=== PATIENT | female | born 1965 | race Caucasian/White ===

== ENCOUNTER 2022-12-17 10:57 | Outpatient (CLI) | payer OTHER, SELFPAY | END 2022-12-17 10:58 | disposition home or self-care (01) | PROVIDERS: PCP Nurse Practitioner Family; Visit Provider Nurse Practitioner Family | DX: Z00.00 Encounter for general adult medical examination without abnormal findings (principal); I10 Essential (primary) hypertension; R53.83 Other fatigue; E78.5 Hyperlipidemia, unspecified; E66.9 Obesity, unspecified; M25.50 Pain in unspecified joint; R00.2 Palpitations | CPT/HCPCS: 80053; 80061; 83735; 84443; 85025; 85651; 86039; 86140; 86431 ==

== ENCOUNTER 2024-01-06 08:11 | Outpatient (CLI) | payer OTHER, SELFPAY ==
--- OUTSIDE RECORDS SUMMARY | 2024-01-06 08:15 | XMS_ITS | Encounter Summary ---
Author Organization [facility] er Address [address] [place] [address] Care Team Providers Care Needle Valve Operator Name Role Phone None, Pcp Primary Care Provider Unavailabl e Reason for Visit * Reason Comments Med Refill Encounter Details Date Type Department Care Team (Late st Contact Info) Description 10/19/2018 Refill Hiram Varg[place]se [address] [place] [address] Natalie Long, ERP PROGRAMMER, CHUCKING MACHINE SET UP OPERATOR [address] [place] [address] Secondary hypertension Social History Tobacco Use Types Packs/Day Years Used Date Smoking Tobacco: Never Smokeless Tobacco: Never Alcohol Use Standard Drinks/Week Comments Yes 3 (1 standard drink = 0.6 oz pur e alcohol) Sex and Gender Information Value Date Recorded Sex Assigned at Not on file Gender Identity Not on file Sexual Orientation Not on file documented as of this encounter Miscellaneous Notes * Telephone Encounter - Melba Pena LPN - 10/21/2018 9:12 AM CDT Spoke with pharmacy patient is not needing a refill of HCTZ at this time documented in this encounter Plan of Treatment Not on file documented as of this encounter Visit Diagnoses Diagnosis Secondary hypertension Other secondary hypertension, unspecified documented in this encounter Care Teams Needle Valve Operator Relationship Specialty Start Date End Date None, Pcp [address] [place] [address] PCP - General 03/06/23 documented as of this encounter
--- OUTSIDE RECORDS SUMMARY | 2024-01-06 08:15 | XMS_ITS | Encounter Summary ---
Author Organization [facility] er Address [address] [place] [address] Care Team Providers Care Welding Machine Operator Ultrasonic Name Role Phone None, Pcp Primary Care Provider Unavailabl e Reason for Visit * Reason Comments Med Refill Encounter Details Date Type Department Care Team (Late st Contact Info) Description 09/12/2018 Refill Hiram Varghese [address] [place] [address] Natalie Long APRN, PRIVATE INVESTIGATOR [address] [place] [phone] Muscle spasms of lower extremity, unspecified laterality (Primary Dx); Secondary hypertension; Essential hypertension Social History Tobacco Use Types Packs/Day [...] encounter Miscellaneous Notes * Telephone Encounter - Lorraine Lopez MA - 09/15/2018 9:46 AM CDT Patient informed. Will call back to schedule med review appt. * Telephone Encounter - Natalie Long APRN, PRIVATE INVESTIGATOR - 09/15/2018 9:40 AM CDT Please let the patient know that I fill the prescription for 3 months that she is due for medication review before future refills. Thanks Alen * Telephone Encounter - Keya Juarez MA - 09/15/2018 8:00 AM CDT Cyclobenzaprine 10mg last rx 06/20/17 #30 no refill Atenolol 25mg last rx 06/20/17 #90, 3 refills Last date med(s) reviewed: 06/20/17 CP No Appt scheduled 06/09/18 BP 104/70 No labs in chart No pending labs in chart Pt due to be seen. Please work with the pt to help set up appt. Please advise on extension until appt. documented in this encounter Plan of Treatment Not on file documented as of this encounter Visit Diagnoses Diagnosis Muscle spasms of lower extremity, unspecified laterality- Primary Secondary hypertension Other secondary hypertension, unspecified Essential hypertension Unspecified essential hypertension documented in this encounter Care Teams Welding Machine Operator Ultrasonic Relationship Specialty Start Date End Date None, Pcp [address] [place] [address] PCP - General 03/06/23 documented as of this encounter
--- OUTSIDE RECORDS SUMMARY | 2024-01-06 08:15 | XMS_ITS | Clinical Summary ---
Author Organization [email or web address] Address [place], [place] [address] Care Team Providers Care Insurance Marketing Specialist Name Role Phone Pcp, No Primary Care Provider Unavailabl e Allergies Active Allergy Reactions Criticality Noted Date Comments Phenobarbital Hives 07/28/2020 Medications Medication Sig Dispensed Refills Start Date End Date Status aspirin (ECOTRIN) 81 mg enteric coated tablet Take 1 Tablet by mouth once daily with a meal. 0 07/28/2020 Active Lactobacillus acidophilus (lactobacill.acidophil us, bulk,) 1 billion unit/gram powd Mix 1 Tablet in liquid then take by mouth. Active Multivitamins with Fluoride (MULTI-VITAMIN ORAL) Take 1 Tablet by mouth. Active celecoxib (CELEBREX) 200 mg capsuleIndications:Pos t-traumatic osteoarthritis of left knee Take 1 Capsule (200 mg) by mouth once daily with a meal. 180 Capsule 1 07/30/2022 Active atenoloL (TENORMIN) 25 mg tabletIndications:HTN (hypertension) TAKE ONE TABLET BY MOUTH EVERY DAY 30 Tablet 11/07/2022 Active hydroCHLOROthiazide 12.5 mg capsuleIndications:HTN (hypertension) TAKE ONE CAPSULE BY MOUTH EVERY DAY 30 Capsule 11/07/2022 Active Active Problems Problem Noted Date Diagnosed Date Colon polyp 08/30/2022 Overview: Colonoscopy 08/2022 TA, repeat in 5 years HTN (hypertension) 07/28/2020 Hyperlipidemia 07/28/2020 Osteoporosis screening 07/28/2020 Overview: Normal bone density May 2019. Heart murmur 07/28/2020 Overview: States had echocardiogram previously that showed she had a small hole in her heart (looks like patent foramen ovale from previous records)? Was told she did not need to have regular follow up for this. Takes aspirin. Encounters Date Type Department Care Team Description 11/05/2023 Orders Only [facility] Staff, Other Clinical 1 scan: (1-Ord) [facility] 11/05/[address] [facility] [address] [place] [address] Fer Chaves MD Consult 11/05/[address] [facility] [address] [place] [address] Fer Chaves MD Consult; Dementia; Error-please disregard from Last 3 Months Immunizations Name Administration Dates Next Due COVID-19 vaccine (Moderna 100mcg/0.5mL) PF, MDV 07/26/2020,06/28/2020 Influenza Virus, Unspecified 04/02/2016, 02/23/2014,03/02/2013,2010,03/17/2008 Influenza, IIV4 04/02/2016, 5,02/16/2015,2010,03/17/2008 Influenza, IIV4 (=>6mos) MDV 03/01/2019 Influenza,CCIIV4 PRESERV FREE 04/10/2020 Tdap 10/23/2021,04/02/2012,05/19/1997 Tetanus Toxoid 05/19/1997 Family History Medical History Relation Name Comments Cancer Father liver Hyperlipidemia Father Hypertension Father Atrial fibrillation Mother Hyperlipidemia Mother Hypertension Mother Melanoma Mother Hypertension Sister Melanoma Sister Thyroid cancer Sister Cancer-breast No Family History Relation Name Status Comments Father Mother Alive Sister Social History Tobacco Use Types Packs/Day Years Used Date Smoking Tobacco: Former Cigarettes Smokeless Tobacco: Never Tobacco Cessation:Counseling Given: Yes Comments:quit 20 years ago Alcohol Use Standard Drinks/Week Comments Yes 0 (1 standard drink = 0.6 oz pur e alcohol) occasional PHQ-2 Answer Date Recorded PHQ-2 TOTAL SCORE 0 10/23/2021 Social Connections Answer Date Recorded Frequency of Communication with Friends and Fami ly Not on file 05/16/2021 Financial Resource Strain Answer Date R ecorded Difficulty of Paying Living Expenses Not on file 05/16/2021 Difficulty of Paying Living Expenses Not on file 05/16/2021 Sex and Gender Information Value Date Recorded Sex Assigned at Female 04/21/2021 9:39 PM ENVIRONMENTAL MANAGEMENT SPECIALIST Gender Identity Female 04/21/2021 9:39 PM ENVIRONMENTAL MANAGEMENT SPECIALIST Sexual Orientation Straight 04/21/2021 9: 39 PM ENVIRONMENTAL MANAGEMENT SPECIALIST Obstetrics History Last Filed Vital Signs Vital Sign Reading Time Taken Comments Blood Pressure 111/67 08/28/2022 8:40 AM CDT Pulse 50 08/28/2022 8:40 AM CDT Temperature 36.7 ??C (98.1 ??F) 04/25/2021 7:37 AM CS T Respiratory Rate 14 08/28/2022 8:40 AM CDT Oxygen Saturation 96% 08/28/2022 8:40 AM CDT Inhaled Oxygen Concentration - - Weight 88 kg (194 lb) 11/08/2021 10:24 AM CDT Height 163.8 cm (5' 4.49) 10/23/2021 7:28 AM CD T Body Mass Index 32.8 10/23/2021 7:28 AM CDT Plan of Treatment Upcoming Encounters Date Type Department Care Team (Late st Contact Info) Description 01/29/2024 8:40 AM CDT Office Visit [facility] [address] [place] [address] Fer Chaves MD [address] [place] [address] Health Maintenance Due Date Last Done Comments HIV for age 15-65 01/12/1980 Zoster (shingles) series for age 50+ (1 of 2) 2015 BMI (ht and wt on same day) for age 18+ 10/23/2022 10/23/2021, 07/28/2020 Depression screening for age 12+ 10/23/2022 10/23/2021, 07/28/2020 COVID-19 vaccine series ( season) 2023 05/04/2021, 07/26/2020, 06/28/2020 Mammogram for age 45-75 05/31/2023 05/31/2022, 04/25 Influenza for age 50-64 01/18/2024 04/10/20 20, 03/01/2019, 04/02/2016, Additional history exists Lipids for age 45-75 10/23/2026 10/23/2021, 07/29/19 21 Colonoscopy through age 75 08/29/202708/28, 08/28/2022, 08/28/2022, Additional history exists Tetanus booster 10/24/2031 10/23/2021, 03/19, 05/19/1997 Hepatitis C screening for age 18-79 Completed 10/23/2021 Tdap Completed 10/23/2021, 03/19, 05/19/1997 Pneumococcal series for age 6-64 Aged Out No longer eligible based on patient's age to complete this topic Procedures Procedure Name Priority Date/Time Associated Diagnosis Comments SCAN CORRESP-IMAGING 11/05/2023 3:38 PM CDT COLONOSCOPY SCREENING Routine 08/28/2022 7:18 AM CDT History of colon polyps XR MAMMO BILAT SCREENING Routine 05/31/2022 8:32 AM ENVIRONMENTAL MANAGEMENT SPECIALIST Visit for screening mammogram ANTI HCV Routine 10/23/2021 8:31 AM CDT Need for hepatitis C screening test LIPID PANEL W REFLEX MEASURED LDL Routine 10/23/2021 8:31 AM CDT Hyperlipidemia, unspecified hyperlipidemia type from Last 3 Months or Most Recently Relevant to Health Maintenance Results * SCAN CORRESP-IMAGING (11/05/2023 3:38 PM CDT) Anatomical Region Laterality Modality Other Narrative 11/05/2023 3:38 PM CDT Ordered by an unspecified provider. Other Clinical Staff OTHER * COLONOSCOPY (08/28/2022 7:37 AM CDT) 08/28/2022 7:37 AM CDT Narrative Transcriptions Girma Bauer MD - 08/28/2022 8:34 AM CDT Patient Name: Beatrice Nguyen Procedure Date: 08/28/2022 Gender: Female Date of : 1965 Admit Type: Outpatient Procedure: Colonoscopy Proceduralist: Girma Bauer MD , Lindsey Jacobson RN (Nurse), Aleksandra Freitas (Nurse) Referring MD: Zoraida Lou Indications/Pre-Op Diagnosis: High risk colon cancer surveillance:Personal history of colonic polyps, Last colonoscopy: date unknown (unable to locate lastcolonoscopy report) Medications: Fentanyl 100 micrograms IV, Midazolam 3 mgIV Procedure Description: The patient had risks, benefits and alternatives explained to andgave informed consent. The patient had a stable cardiopulmonary status and judged an adequate candidate for conscious sedation. The endoscope [id number]-[id number] [id number] was passed through the anus andadvanced to the cecum, identified by appendiceal orifice and ileocecal valve.The colonoscopy was performed without difficulty. The patient toleratedthe procedure well. The quality of the bowel preparation was good. Anatomical landmarks were photographed. Complications: No immediate complications. Estimated Blood Loss & Specimen: Estimated blood loss: none. Specimen collected - Yes and sent to Laboratory Findings: Two sessile polyps were found in the ascending colon. The polyps were2 to 3 mm in size. These polyps were removed with a cold biopsyforceps. Resection and retrieval were complete. The exam was otherwise without abnormality on direct and retroflexion views. Impressions/Post-Op Diagnosis: - Two 2 to 3 mm polyps in the ascending colon, removed with a cold biopsy forceps. Resected and retrieved. - The examination was otherwise normal on direct and retroflexionviews. Recommendation: - Patient has a contact number available for emergencies. The signsand symptoms of potential delayed complications were discussed with the patient. Return to normal activities tomorrow. Written discharge instructions were provided to the patient. - Resume previous diet. - Continue present medications. - Await pathology results. - Repeat colonoscopy is recommended for surveillance. The colonoscopy date will be determined after pathology results from today's exambecome available for review. Moderate Sedation: A time out was performed before the procedure. Moderate (conscious) sedation was administered by the endoscopy nurse and supervised bythe endoscopist. The following parameters were monitored: oxygensaturation, heart rate, blood pressure, EKG, CO2, respiratory rate, adequacy of pulmonary ventilation and reponse to care. Please refer to the patient's medical record flowsheets and nursing notes for moderate sedation details. Total physician intraservice time was 17 minutes. Girma Bauer MD 08/28/2022 8:34:11 AM This report has been signed electronically. Note Initiated On: 08/28/2022 7:37 AM Procedure Code(s): --- Professional --- 18121, Colonoscopy, flexible; with biopsy, single or multiple Diagnosis Code(s): --- Professional --- Z86.010, Personal history of colonicpolyps D12.2, Benign neoplasm of ascending colon CPT copyright 2021 [employer]. All rights reserved. The codes documented in this report are preliminary and upon medical biller coder reviewmay be revised to meet current compliance requirements. Scope In: 8:09:15 AM Scope Withdrawal Time 0 hours 9 minutes 40 seconds Scope Out: 8:23:15 AM Girma Bauer MD PROCEDURE ORD * XR MAMMO BILAT SCREENING (05/31/2022 8:32 AM ENVIRONMENTAL MANAGEMENT SPECIALIST) Anatomical Region Laterality Modality BREASTS, Breast Left, Breast Right Bilateral Mammography Impressions 06/03/2022 3:52 PM ENVIRONMENTAL MANAGEMENT SPECIALIST ??There is no radiographic evidence for malignancy. ??Recommend annual mammograms. MAMMOGRAM ASSESSMENT: ??ACR 1 Negative PATIENTS: You will also receive a letter with your examination results in an easy to read format. ??If you have questions about your results, please contact your referring provider. Narrative 06/03/2022 3:52 PM ENVIRONMENTAL MANAGEMENT SPECIALIST For Patients: As a result of the 21st Century Cures Act, medical imaging exams and procedure reports are released immediately into your electronic medical record. You may view this report before your referring provider. If you have questions, please contact your health care provider. XR MAMMO BILAT SCREENING [[id number]] CLINICAL HISTORY: ??This is an asymptomatic 57 y.o. patient. INDICATION FOR EXAM: Mammogram Screening. TECHNIQUE: CC & MLO views were obtained. ??This study was evaluated with the assistance of Computer-Aided Detection. COMPARISON FILM: Yes 04/25/21 [facility] 06/17/19 [facility] FINDINGS: ??The breasts are almost entirely fatty. There are no dominant masses, suspicious micro calcifications or areas of architectural distortion. Zoraida Lou PA MAMMO * (ABNORMAL) LIPID PANEL W REFLEX MEASURED LDL (10/23/2021 8:31 AM CDT) CHOLESTEROL,TOTAL 259(H) 100 - 199 mg/dL 10/23/2021 5:13 PM CDT [facility] TRIGLYCERIDES 139 <150 mg/dL 10/23/2021 5:13 PM CDT [facility] HDL CHOLESTEROL 68 >40 mg/dL 5:13 PM CDT [facility] NON-HDL CHOLESTEROL 191(H) <145 mg/dl 10/23/2021 5:13 PM CDT [facility] CHOL/HDL RATIO 3.81 <4.50 10/23/2021 5:13 PM CDT [facility] LDL CHOLESTEROL 163(H) <=130 mg/dL 10/23/2021 5:13 PM CDT [facility] VLDL CHOLESTEROL 28 <=30 mg/dL 10/23/2021 5:13 PM CDT [facility] PROVIDER ORDERED STATUS RANDOM 10/23/2021 5:13 PM CDT [facility] Blood BLOOD SPECIMEN / Unknown Venipuncture / Unknown 10/23/2021 8:31 AM CDT 10/23/2021 8:31 AM CDT Zoraida GALARZA CHEMISTRY [facility] [address] [place] [address], [place] * ANTI HCV (10/23/2021 8:31 AM CDT) HEPATITIS C ANTIBODY Non-React get Non-React get 10/23/2021 5:36 PM CDT [facility] Comment:Antibodies to HCV no t detected; does not exclude the possibility of exposure to HCV. Blood BLOOD SPECIMEN / Unknown Venipuncture / Unknown 10/23/2021 8:31 AM CDT 10/23/2021 8:31 AM CDT Zoraida GALARZA SEND OUTS [facility] [address] [place] [address], [place] from Last 3 Months or Most Recently Relevant to Health Maintenance Care Teams Insurance Marketing Specialist Relationship Specialty Start Date End Date Pcp, No . PCP - General 04/09/23
--- OUTSIDE RECORDS SUMMARY | 2024-01-06 08:15 | XMS_ITS | Encounter Summary ---
Author Organization [facility] er Address [address] [place] [address] Care Team Providers Care Machinery Mover Name Role Phone None, Pcp Primary Care Provider Unavailabl e Encounter Details Date Type Department Care Team (Late st Contact Info) Description 10/21/2023 2:00 PM CDT Lab Rj Varghese [address] [place] [address] Social History Tobacco Use Types Packs/Day Years Used Date Smoking Tobacco: Former Smokeless Tobacco: Never Comments:10 years ago (06/20) Alcohol Use Standard Drinks/Week Comments Yes 3 (1 standard drink = 0.6 oz pur e alcohol) rare PHQ-2 Answer Date Recorded PHQ-9 Total Score 0 07/01/2023 Education Answer Date Recorded What is the highest level of school you have completed or the highest degree you have received? Associate degree: academic program 11/17/2018 Sex and Gender Information Value Date Recorded Sex Assigned at Not on file Gender Identity Not on file Sexual Orientation Not on file documented as of this encounter Plan of Treatment Not on file documented as of this encounter Visit Diagnoses Not on filedocumented in this encounter Care Teams Machinery Mover Relationship Specialty Start Date End Date None, Pcp [address] [place] [address] PCP - General 03/06/23 documented as of this encounter
--- OUTSIDE RECORDS SUMMARY | 2024-01-06 08:15 | XMS_ITS | Clinical Summary ---
Author Organization [facility] er Address [address] [place] [address] Care Team Providers Care Windshield Technician Name Role Phone None, Pcp Primary Care Provider Unavailabl e Allergies Active Allergy Reactions Criticality Noted Date Comments Phenobarbital Medications Medication Sig Dispensed Refills Start Date End Date Status aspirin 81 MG chewable tablet Chew 1 tablet (81 mg total) 1 (one) time each day Active Multiple Vitamins-Minerals (MULTIVITAMIN ADULT PO) Take 1 tablet by mouth 1 (one) time each day Active LACTOBACILLUS PO Take 1 tablet by mouth 1 (one) time each day Active atorvastatin (LIPITOR) 10 MG tabletIndications:Hype rlipidemia, unspecified hyperlipidemia type Take 1 tablet (10 mg total) by mouth 1 (one) time each day 90 tablet 3 12/28/2018 Active hydroCHLOROthiazide (MICROZIDE) 12.5 MG capsuleIndications:Ess ential hypertension Take 1 capsule (12.5 mg total) by mouth 1 (one) time each day 90 capsule 3 12/09/2019 Active atenolol (TENORMIN) 25 MG tablet Take 1 tablet (25 mg total) by mouth daily 11/07/2022 Active cetirizine (ZyrTEC ALLERGY) 10 MG tabletIndications:Bila teral acute serous otitis media, recurrence not specified Take 1 tablet (10 mg total) by mouth every night 30 tablet 07/01/2023 Active pseudoephedrine (Sudafed 12 Hour) 120 MG 12 hr tabletIndications:Bila teral acute serous otitis media, recurrence not specified Take 1 tablet (120 mg total) by mouth every 12 (twelve) hours for 10 days Do not crush, chew, or split. 20 tablet 07/01/2023 Active Active Problems Problem Noted Date Diagnosed Date Bilateral acute serous otitis media 07/01/2023 Last Assessment & Plan: Start Sudafed 120 mg/12 hour tablet every morning for up to 10 days Start Zyrtec 10 mg every night for 30 nights Cardiac murmur 06/20/2017 Stress incontinence 06/20/2017 Hypertension 11/02/2010 Overview: Overview: HTN [Hypertension] date unknown Encounters Date Type Department Care Team Description 10/21/2023 2:00 PM CDT Lab [place] [address] [facility] [address] [place] [address] from Last 3 Months Immunizations Name Administration Dates Next Due Flu Vaccine 50-64yrs Flublok (Egg Free) 04/10/2020 INFLUENZA QUADRIVALENT MDV (IM) 04/10/20,03/01/2019,03/01/2019,2013,03/02/2013 Influenza 6mo-64yrs Quad Pre servative Free IM 01/22/2023,04/02/2016,03/07/2015,2014,03/07/2011,03/17/2008 Influenza, Unspecified 04/02/2016,2013,03/02/2013,2010,03/17/2008 Influenza, injectable, MDCK, preservative free, quadrivalent, 0.5mL dose (Flucelvax) 04/10/2020 Tdap 10/23/2021,04/02/2012,05/19/1997 Tetanus 05/19/1997 Family History Medical History Relation Comments Hyperlipidemia Father Hypertension Father Liver cancer Father Thyroid cancer Father partial thyroide ctomy Atrial fibrillation Mother Hyperlipidemia Mother Hypertension Mother Melanoma Mother Skin cancer Mother melanoma Heart disease Other Hypothyroidism Other Melanoma Sister Thyroid cancer Sister Relation Status Comments Father Mother Alive Other Sister Alive Son 1 Alive Son 2 Alive Son 3 Alive Social History Tobacco Use Types Packs/Day Years Used Date Smoking Tobacco: Former Smokeless Tobacco: Never Tobacco Cessation:Counseling Given: Not Answered Comments:10 years ago (06/20/2017) Alcohol Use Standard Drinks/Week Comments Yes 3 [...] on file Sexual Orientation Not on file Last Filed Vital Signs Vital Sign Reading Time Taken Comments Blood Pressure 123/81 07/01/2023 2:54 PM MANAGER OF PRODUCTION Pulse 63 07/01/2023 2:54 PM MANAGER OF PRODUCTION Temperature 36.4 ??C (97.6 ??F) 07/01/2023 2:54 PM CS T Respiratory Rate 12 07/01/2023 2:54 PM MANAGER OF PRODUCTION Oxygen Saturation 96% 07/01/2023 2:54 PM MANAGER OF PRODUCTION Inhaled Oxygen Concentration - - Weight 82.2 kg (181 lb 3.2 oz) 07/01/2023 2:54 P M MANAGER OF PRODUCTION Height 165.1 cm (5' 5) 11/01/2019 1:06 PM CDT Body Mass Index 30.15 11/01/2019 1:06 PM CDT Plan of Treatment Health Maintenance Due Date Last Done Comments CT Colonography 1965 FIT-DNA 1965 Pap Smear 1965 Sigmoidoscopy 1965 iFOBT 1965 Zoster Vaccines (1 of 2) 2015 COVID-19 Vaccine ( season) 2023 05/04/2021, 07/26/2020, 06/28/2020 Mammogram 05/31/2023 05/31/2022, 05/21, 03/23/2018 Influenza Vaccine (#1) 2024 , 04/10/2020, 04/10/2020, Additional history exists DTaP,Tdap,and Td Vaccines (4 - Td or Tdap) 10/24/2031 10/23/2021, 04/02/2012, 05/19/1997 Colonoscopy 08/28/2032 08/28/2022 Colorectal Cancer Screening 08/28/2032 HPV Vaccines Aged Out No longer eligi ble based on patient's age to complete this topic Pneumococcal Vaccine: Pediatrics (0 to 5 Years) and At-Risk Patients (6 to 64 Years) Aged Out No longer eligible based on patient's age to complete this topic Care Teams Windshield Technician Relationship Specialty Start Date End Date None, Pcp [address] [facility] [place] [address] PCP - General 03/06/23
== END 2024-01-06 08:12 | disposition home or self-care (01) ==
PROVIDERS: PCP Nurse Practitioner Family; Visit Provider Nurse Practitioner Family
DX: Z00.00 Encounter for general adult medical examination without abnormal findings (principal); E78.5 Hyperlipidemia, unspecified; I10 Essential (primary) hypertension; E66.9 Obesity, unspecified; Z13.0 Encounter for screening for diseases of the blood and blood-forming organs and certain disorders involving the immune mechanism; Z83.49 Family history of other endocrine, nutritional and metabolic diseases; Z51.81 Encounter for therapeutic drug level monitoring
CPT/HCPCS: 80053; 80061; 84443; 85025

== ENCOUNTER 2024-01-15 13:19 | Outpatient (CLI) | payer OTHER, SELFPAY ==
--- OUTSIDE RECORDS SUMMARY | 2024-01-15 13:22 | XMS_ITS | Encounter Summary ---
Author Organization [facility] er Address [address] [place] [address] Care Team Providers Care Bakery Demonstrator Name Role Phone None, Pcp Primary Care Provider Unavailabl e Reason for Visit * Reason Comments Med Refill Encounter Details Date Type Department Care Team (Late st Contact Info) Description 09/12/2018 Refill Hiram Varghese [address] [place] [address] Natalie Long APRN, PLAYER DEVELOPMENT EXECUTIVE [address] [place] [id number] Muscle spasms of lower extremity, unspecified laterality [...] * Telephone Encounter - Natalie Long APRN, PLAYER DEVELOPMENT EXECUTIVE - 09/15/2018 9:40 AM CDT Please let [...] hypertension documented in this encounter Care Teams Bakery Demonstrator Relationship Specialty Start Date End Date None, Pcp [address] [place] [phone] PCP - General 03/06/23 documented as of this encounter
--- OUTSIDE RECORDS SUMMARY | 2024-01-15 13:22 | XMS_ITS | Encounter Summary ---
Author Organization [facility] er Address [address] [place] [address] Care Team Providers Care Supervisor Printing And Stamping Name Role Phone None, Pcp Primary Care Provider Unavailabl e Encounter Details Date Type Department Care Team (Late st Contact Info) Description 10/21/2023 2:00 PM CDT Lab [place] [address] [place] [address] Social History Tobacco Use Types Packs/Day Years [...] on filedocumented in this encounter Care Teams Supervisor Printing And Stamping Relationship Specialty Start Date End Date None, Pcp [address] [place] [address] PCP - General 03/06/23 documented as of this encounter
--- OUTSIDE RECORDS SUMMARY | 2024-01-15 13:22 | XMS_ITS | Encounter Summary ---
Author Organization [facility] er Address [address] [place] [address] Care Team Providers Care Supervisor Engine Assembly Name Role Phone None, Pcp Primary Care Provider Unavailabl e Reason for Visit * Reason Comments Med Refill Encounter Details Date Type Department Care Team (Late st Contact Info) Description 10/19/2018 Refill [place] [address] [place] [address] Natalie Long, HEEL PACKER, RESIDENTIAL PROPERTY TAX APPRAISER [address] [place] [address] Secondary hypertension Social History Tobacco Use Types [...] unspecified documented in this encounter Care Teams Supervisor Engine Assembly Relationship Specialty Start Date End Date None, Pcp [address] [place] [address] PCP - General 03/06/23 documented as of this encounter
--- OUTSIDE RECORDS SUMMARY | 2024-01-15 13:22 | XMS_ITS | Clinical Summary ---
Author Organization [facility] Address [place], [place] [address] Care Team Providers Care Conveyor Belt Repairer Name Role Phone Pcp, No Primary Care [...] Department Care Team Description 11/05/2023 Orders Only [facility] Staff, Other Clinical 1 scan: (1-Ord) [facility] 11/05/2023 Telephone [facility] [place] [address] [place] [address] Fer Chaves MD Consult 11/05/2023 Telephone [facility] [place] [address] [place] [address] Fer Chaves MD Consult; Dementia; Error-please disregard [...] Sex Assigned at Female 04/21/2021 9:39 PM GRIZZLYMAN Gender Identity Female 04/21/2021 9:39 PM GRIZZLYMAN Sexual Orientation Straight 04/21/2021 9: 39 PM GRIZZLYMAN Obstetrics History Last Filed Vital Signs Vital [...] Care Team (Late st Contact Info) Description 01/15/2024 2:00 PM CDT Ancillary Procedure [facility] [address] [place] [address] 01/29/2024 8:40 AM CDT Office Visit [facility] [place] [address] [place] [address] Fer Chaves MD [address] [place] [address] Health Maintenance Due Date Last Done Comments [...] MAMMO BILAT SCREENING Routine 05/31/2022 8:32 AM GRIZZLYMAN Visit for screening mammogram ANTI HCV Routine [...] Colonoscopy Proceduralist: Girma Bauer MD , Lindsey Jacobson, RN (Nurse), Aleksandra Freitas (Nurse) Referring MD: [...] candidate for conscious sedation. The endoscope [id number] was passed through the anus andadvanced to [...] 7:37 AM Procedure Code(s): --- Professional --- 31910, Colonoscopy, flexible; with biopsy, single or multiple Diagnosis Code(s): --- Professional --- Z86.010, Personal history of colonicpolyps D12.2, Benign neoplasm of ascending colon CPT copyright 2021 [employer]. All rights reserved. The codes documented in this report are preliminary and upon medical biller coder reviewmay be revised to meet current compliance requirements. Scope In: 8:09:15 AM Scope Withdrawal Time 0 hours 9 minutes 40 seconds Scope Out: 8:23:15 AM Girma Bauer MD PROCEDURE ORD * XR MAMMO BILAT SCREENING (05/31/2022 8:32 AM GRIZZLYMAN) Anatomical Region Laterality Modality BREASTS, Breast Left, Breast Right Bilateral Mammography Impressions 06/03/2022 3:52 PM GRIZZLYMAN ??There is no radiographic evidence for malignancy. ??Recommend annual mammograms. MAMMOGRAM ASSESSMENT: ??ACR 1 Negative PATIENTS: You will also receive a letter with your examination results in an easy to read format. ??If you have questions about your results, please contact your referring provider. Narrative 06/03/2022 3:52 PM GRIZZLYMAN For Patients: As a result of the Cures Act, medical imaging exams and procedure reports are released immediately into your electronic medical record. You may view this report before your referring provider. If you have questions, please contact your health care provider. XR MAMMO BILAT SCREENING [[id number]] CLINICAL HISTORY: ??This is an asymptomatic 57 y.o. patient. INDICATION FOR EXAM: Mammogram Screening. TECHNIQUE: CC & MLO views were obtained. ??This study was evaluated with the assistance of Computer-Aided Detection. COMPARISON FILM: Yes 04/25/21 [facility] 06/17/19 [facility] FINDINGS: ??The breasts are almost entirely fatty. There are no dominant masses, suspicious micro calcifications or areas of architectural distortion. Zoraida GALARZA MAMMO * (ABNORMAL) LIPID PANEL W REFLEX MEASURED LDL (10/23/2021 8:31 AM CDT) CHOLESTEROL,TOTAL 259(H) 100 - 199 mg/dL 10/23/2021 5:13 PM CDT [facility] TRIGLYCERIDES 139 <150 mg/dL 10/23/2021 5:13 PM CDT [facility] HDL CHOLESTEROL 68 >40 mg/dL 5:13 PM CDT [facility] NON-HDL CHOLESTEROL 191(H) <145 mg/dl 10/23/2021 5:13 PM CDT [facility] CHOL/HDL RATIO 3.81 <4.50 10/23/2021 5:13 PM CDT [facility] LDL CHOLESTEROL 163(H) <=130 mg/dL 10/23/2021 5:13 PM CDT [facility] VLDL CHOLESTEROL 28 <=30 mg/dL 10/23/2021 5:13 PM CDT [facility] PROVIDER ORDERED STATUS RANDOM 10/23/2021 5:13 PM CDT [facility] Blood BLOOD SPECIMEN / Unknown Venipuncture / Unknown 10/23/2021 8:31 AM CDT 10/23/2021 8:31 AM CDT Zoraida GAALRZA CHEMISTRY [facility] [address] [place] [address], * ANTI HCV (10/23/2021 8:31 AM CDT) HEPATITIS C ANTIBODY Non-React get Non-React get 10/23/2021 5:36 PM CDT [facility] Comment:Antibodies to HCV no t detected; does not exclude the possibility of exposure to HCV. Blood BLOOD SPECIMEN / Unknown Venipuncture / Unknown 10/23/2021 8:31 AM CDT 10/23/2021 8:31 AM CDT Zoraida GALARZA SEND OUTS Performing Organization Address City/[facility]/ZIP Co de Phone Number [facility] [address] from Last 3 Months or Most Recently Relevant to Health Maintenance Care Teams Conveyor Belt Repairer Relationship Specialty Start Date End Date Pcp, No . PCP - General 11/22/23
--- OUTSIDE RECORDS SUMMARY | 2024-01-15 13:22 | XMS_ITS | Clinical Summary ---
Author Organization [facility] er Address [address] [place] [address] Care Team Providers Care Trust Vault Clerk Name Role Phone None, Pcp Primary Care [...] Team Description 10/21/2023 2:00 PM CDT Lab [place] [address] [facility] [address] [place] [address] from Last 3 Months Immunizations Name Administration [...] Comments Blood Pressure 123/81 07/01/2023 2:54 PM SOFTWARE PROJECT ENGINEER Pulse 63 07/01/2023 2:54 PM SOFTWARE PROJECT ENGINEER Temperature 36.4 ??C (97.6 ??F) 07/01/2023 2:54 PM CS T Respiratory Rate 12 07/01/2023 2:54 PM SOFTWARE PROJECT ENGINEER Oxygen Saturation 96% 07/01/2023 2:54 PM SOFTWARE PROJECT ENGINEER Inhaled Oxygen Concentration - - Weight 82.2 kg (181 lb 3.2 oz) 07/01/2023 2:54 P M SOFTWARE PROJECT ENGINEER Height 165.1 cm (5' 5) 11/01/2019 1:06 [...] age to complete this topic Care Teams Trust Vault Clerk Relationship Specialty Start Date End Date None, Pcp [address] [facility] [place] [address] PCP - General 03/06/23
== END 2024-01-15 13:20 | disposition home or self-care (01) ==
LOC: RAD 13:20
PROVIDERS: PCP Nurse Practitioner Family; Visit Provider Nurse Practitioner Family
DX: Q21.12 Patent foramen ovale (principal); R01.1 Cardiac murmur, unspecified
CPT/HCPCS: 93306

== ENCOUNTER 2024-03-10 14:18 | Outpatient (CLI) | payer OTHER, SELFPAY ==
--- OUTSIDE RECORDS SUMMARY | 2024-03-10 14:20 | XMS_ITS | Encounter Summary ---
Author Organization [facility] er Address [address] [place] [address] Care Team Providers Care Registered Dietetic Technician Name Role Phone None, Pcp Primary Care Provider Unavailabl e Reason for Visit * Reason Comments Med Refill Encounter Details Date Type Department Care Team (Late st Contact Info) Description 10/19/2018 Refill [place] [address] [place] [address] Natalie Long, J[place]AROO, BICYCLE MESSENGER [address] [place] [address] Secondary hypertension Social History Tobacco Use Types [...] unspecified documented in this encounter Care Teams Registered Dietetic Technician Relationship Specialty Start Date End Date None, Pcp [address] [place] [address] PCP - General 03/06/23 documented as of this encounter
--- OUTSIDE RECORDS SUMMARY | 2024-03-10 14:20 | XMS_ITS | Encounter Summary ---
Author Organization [facility] er Address [address] [place] [address] Care Team Providers Care Environmental Geologist Name Role Phone None, Pcp Primary Care Provider Unavailabl e Reason for Visit * Reason Comments Med Refill Encounter Details Date Type Department Care Team (Late st Contact Info) Description 09/12/2018 Refill [place] [address] [place] [address] Natalie Long APRN, POLYMERIZATION KETTLE OPERATOR [address] [place] [id number] Muscle spasms of lower extremity, unspecified laterality [...] * Telephone Encounter - Natalie Long APRN, POLYMERIZATION KETTLE OPERATOR - 09/15/2018 9:40 AM CDT Please let [...] hypertension documented in this encounter Care Teams Environmental Geologist Relationship Specialty Start Date End Date None, Pcp [address] [place] [phone] PCP - General 03/06/23 documented as of this encounter
--- OUTSIDE RECORDS SUMMARY | 2024-03-10 14:20 | XMS_ITS | Clinical Summary ---
Author Organization [facility] er Address [address] [place] [address] Care Team Providers Care Eyewear Consultant Name Role Phone None, Pcp Primary Care [...] 11/02/2010 Overview: Overview: HTN [Hypertension] date unknown Immunizations Name Administration Dates Next Due Flu [...] Comments Blood Pressure 123/81 07/01/2023 2:54 PM PLYWOOD SCARFER TENDER Pulse 63 07/01/2023 2:54 PM PLYWOOD SCARFER TENDER Temperature 36.4 ??C (97.6 ??F) 07/01/2023 2:54 PM CS T Respiratory Rate 12 07/01/2023 2:54 PM PLYWOOD SCARFER TENDER Oxygen Saturation 96% 07/01/2023 2:54 PM PLYWOOD SCARFER TENDER Inhaled Oxygen Concentration - - Weight 82.2 kg (181 lb 3.2 oz) 07/01/2023 2:54 P M PLYWOOD SCARFER TENDER Height 165.1 cm (5' 5) 11/01/2019 1:06 PM CDT Body Mass Index 30.15 11/01/2019 1:06 PM CDT Plan of Treatment Health Maintenance Due Date Last Done Comments CT Colonography 1965 FIT-DNA 1965 Pap Smear 1965 Sigmoidoscopy 1965 iFOBT 1965 Zoster Vaccines (1 of 2) 2015 Mammogram 05/31/2023 05/31/2022, 05/21, 03/23/2018 COVID-19 Vaccine ( - season) 2024 05/04/2021, 07/26/2020, 06/28/2020 DTaP,Tdap,and Td Vaccines (4 - Td or Tdap) 10/24/2031 10/23/2021, 04/02/2012, 05/19/1997 Colonoscopy 08/28/2032 08/28/2022 Colorectal Cancer Screening 08/28/2032 Influenza Vaccine Completed 01/20/2024, , 04/10/2020, Additional history exists HPV Vaccines Aged Out No longer eligi ble based on patient's age to complete this topic Pneumococcal Vaccine: Pediatrics (0 to 5 Years) and At-Risk Patients (6 to 64 Years) Aged Out No longer eligible based on patient's age to complete this topic Care Teams Eyewear Consultant Relationship Specialty Start Date End Date None, Pcp [address] [place] [address] PCP - General 03/06/23
--- OUTSIDE RECORDS SUMMARY | 2024-03-10 14:21 | XMS_ITS | Clinical Summary ---
Author Organization [facility] Address [place], [place] [address] Care Team Providers Care Intake Counselor Name Role Phone Pcp, No Primary Care [...] Noted Date Diagnosed Date Colon polyp 08/30/2022 Overview (08/30/2022): Colonoscopy 08/2022 TA, repeat in 5 years HTN (hypertension) 07/28/2020 Hyperlipidemia 07/28/2020 Osteoporosis screening 07/28/2020 Overview (07/28/2020): Normal bone density May 2019. Heart murmur 07/28/2020 Overview (08/09/2020): States had echocardiogram previously that showed she had a small hole in her heart (looks like patent foramen ovale from previous records)? Was told she did not need to have regular follow up for this. Takes aspirin. Encounters Date Type Department Care Team Description 02/12/2024 3:30 PM CDT Office Visit [facility] [address] [place] [address] Oli Beltran MD 01/15/2024 2:00 PM CDT Ancillary Procedure [facility] [address] [place] [address] from Last 3 Months Immunizations Name Administration Dates Next Due COVID-19 vaccine (Moderna 100mcg/0.5mL) TABBY MDMayito 07/26/2020,06/28/2020 Influenza Virus, Unspecified 04/02/2016, 02/23/2014,03/02/2013,2010,03/17/2008 Influenza, [...] Sex Assigned at Female 04/21/2021 9:39 PM TOBACCO SCRAP SIFTER Gender Identity Female 04/21/2021 9:39 PM TOBACCO SCRAP SIFTER Sexual Orientation Straight 04/21/2021 9: 39 PM TOBACCO SCRAP SIFTER Obstetrics History Last Filed Vital Signs Vital [...] 10/23/2021 7:28 AM CDT Plan of Treatment Health Maintenance Due Date Last Done Comments HIV for age 15-65 01/12/1980 Zoster (shingles) series for age 50+ (1 of 2) 2015 BMI (ht and wt on same day) for age 18+ 10/23/2022 10/23/2021, 07/28/2020 Depression screening for age 12+ 10/23/2022 10/23/2021, 07/28/2020 Mammogram for age 45-75 05/31/2023 05/31/2022, 04/25 COVID-19 vaccine series ( season) 2024 05/04/2021, 07/26/2020, 06/28/2020 Influenza for age 50-64 01/18/2024 04/10/20 20, [...] Procedure Name Priority Date/Time Associated Diagnosis Comments ECHO TTE COMPLETE WO CONTRAST Routine 01/15/2024 2:40 PM CDT Patent foramen ovale COLONOSCOPY SCREENING Routine 08/28/2022 7:18 AM CDT History of colon polyps XR MAMMO BILAT SCREENING Routine 05/31/2022 8:32 AM TOBACCO SCRAP SIFTER Visit for screening mammogram ANTI HCV Routine 10/23/2021 8:31 AM CDT Need for hepatitis C screening test LIPID PANEL W REFLEX MEASURED LDL Routine 10/23/2021 8:31 AM CDT Hyperlipidemia, unspecified hyperlipidemia type from Last 3 Months or Most Recently Relevant to Health Maintenance Results * ECHO TTE COMPLETE WO CONTRAST (01/15/2024 2:40 PM CDT) AORTIC VALVE MEAN PG 12 mmHg EJECTION FRACTION 75 % PEAK TR VELOCITY 2.6 m/s LVEDD 3.8 cm Anatomical Region Laterality Modality Ultrasound 01/15/2024 1:56 PM CDT Narrative 01/15/2024 3:15 PM CDT ECHOCARDIOGRAM SIMI SHEPPARD ? Accession#: ?? [id number] : ?1965 59 years Study Date: ?? 01/15/2024 1:56:58 PM Gender: F ?BP: ? 121/73 mmHg Height: 165.00 cm ?BSA: ?1.89 m? ? ? Weight: 82.00 kg ? Tech: ? MCK ? Referring MD: NATALIE LONG Site: ? [facility] Reading Location: Mobile-OP Patient Location: Outpatient. Procedure: 2D, Color Doppler and Spectral Doppler. Indication for study: PFO Cardiac Rhythm: Normal sinus.Study quality: Good. Imaging limitations: This study was subject to imaging limitations due to body habitus and a prominent lung artifact. Final Impressions: 1. Normal left ventricular size, normal wall thickness, normal global systolic function, calculated EF of 75 %. 2. Right ventricular cavity size is normal, global systolic RV function is normal. 3. The aortic valve is calcified and trileaflet, mild stenosis and no regurgitation. 4. No pericardial effusion. 5. No shunt seen across the interatrial septum by color Doppler. Chamber Sizes and Function Normal left ventricular size, normal wall thickness, normal global systolic function, calculated EF of 75 %. No definite resting regional wall motion abnormality seen. Left atrial size is normal. Left atrial pressure is normal. Right ventricular cavity size is normal, global systolic RV function is normal. The right atrium is normal. Right atrial volume index is 21 ml/m? ? ?. Right atrial area is 16 cm? ? ?. The pulmonary artery is not well visualized. The sinus of Valsalva is normal sized. The ascending aorta is normal sized. Valves, RV Pressures and Diastolic Function The aortic valve is calcified and trileaflet, mild stenosis and no regurgitation. The mitral valve is normal in structure, no mitral regurgitation. Normal diastolic function. The tricuspid valve is normal in structure. Tricuspid regurgitation is mild regurgitation. The tricuspid regurgitant velocity is 2.6 m/s, the estimated right ventricular systolic pressure is 28 mmHg plus right atrial pressure. The pulmonic valve is not well visualized. Trace pulmonary regurgitation. Masses, Effusion, Shunts There is no pericardial effusion. The inferior vena cava is normal sized, respiratory size variation greater than 50%. No left to right shunting was detected by limited color flow Doppler interrogation of the interatrial septum. MEASUREMENTS AND CALCULATIONS 2-D Measurements and LV Function: LVID (d) 3.8 cm Planimetered EF 75 % LVID (s) 2.2 cm LV FS% (2D) ? 43 % IVS (d) ??1.0 cm LVOT diameter ?? 2.1 cm LVPW (d) 1.2 cm HR ?62 bpm Ao Sinus 2.9 cm LA Vol index ?26 ml/m2 Asc Ao ?? 3.2 cm RA Vol index ?21 ml/m2 LA ? 3.6 cm RA area ? 16 cm?RV Max 4C (d) ?? 4.7 cm Diastology: Mitral ?Tissue Doppler E Peak 0.9 m/s ??e', Septum ? 0.09 m/s A Peak 0.8 m/s ??e', Lateral ?0.13 m/s E/A ?1.1 ?E/e' Average ?? 8.08 DT ? 198 msec Aortic Valve: Vmax ? 2.5 m/s ??RUPINDER (V) ?? 2.14 cm? ? ? VTI ?0.56 m ?? RUPINDER (I) ?? 2.15 cm? ? ? LVOT V max 1.6 m/s ??Max PG ?25 mmHg LVOT VTI ?? 0.36 m ?? Mean PG ?? 12 mmHg SV ? 121 ml ?? Dim Index 0.63 SV index ?? 64 ml/m? ? ? CO ?7.5 l/min ?CI ?3.9 l/min/m? ? ? Mitral Valve: MVA ?3.8 cm? ? ? MV P 1/2 57 msec Tricuspid Valve and estimated PA pressures: TR Vmax 2.6 m/s TAPSE 2.9 cm TR maxG 28 mmHg . This study was interpreted by an [facility] accredited facility. CC: [facility]. ??Final ?? Procedure Note Caleb Zamarripa MD - 01/15/2024 ECHOCARDIOGRAM SIMI SHEPPARD : 1965 59 years Study Date: 01/15/2024 1:56:58 PM Gender: F BP: 121/73 mmHg Height: 165.00 cm BSA: 1.89 m? ? ? Weight: 82.00 kg Tech: [facility] [place] [facility] Referring MD: NATALIE LONG Site: [facility] Reading Location: Mobile-OP Patient Location: Outpatient. Procedure: 2D, Color Doppler and Spectral Doppler. Indication for study: PFO Cardiac Rhythm: Normal sinus.Study quality: Good. Imaging limitations: This study was subject to imaging limitations due tobody habitus and a prominent lung artifact. Final Impressions: 1. Normal left ventricular size, normal wall thickness, normal globalsystolic function, calculated EF of 75 %. 2. Right ventricular cavity size is normal, global systolic RV functionis normal. 3. The aortic valve is calcified and trileaflet, mild stenosis and noregurgitation. 4. No pericardial effusion. 5. No shunt seen across the interatrial septum by color Doppler. Chamber Sizes and Function Normal left ventricular size, normal wall thickness, normal globalsystolic function, calculated EF of 75 %. No definite resting regionalwall motion abnormality seen. Left atrial size is normal. Left atrialpressure is normal. Right ventricular cavity size is normal, globalsystolic RV function is normal. The right atrium is normal. Right atrialvolume index is 21 ml/m? ? ?. Right atrial area is 16 cm? ? ?. The pulmonaryartery is not well visualized. The sinus of Valsalva is normal sized. Theascending aorta is normal sized. Valves, RV Pressures and Diastolic Function The aortic valve is calcified and trileaflet, mild stenosis and noregurgitation. The mitral valve is normal in structure, no mitralregurgitation. Normal diastolic function. The tricuspid valve is normal instructure. Tricuspid regurgitation is mild regurgitation. The tricuspidregurgitant velocity is 2.6 m/s, the estimated right ventricular systolicpressure is 28 mmHg plus right atrial pressure. The pulmonic valve is notwell visualized. Trace pulmonary regurgitation. Masses, Effusion, Shunts There is no pericardial effusion. The inferior vena cava is normal sized,respiratory size variation greater than 50%. No left to right shunting wasdetected by limited color flow Doppler interrogation of the interatrialseptum. MEASUREMENTS AND CALCULATIONS 2-D Measurements and LV Function: LVID (d) 3.8 cm Planimetered EF 75 % LVID (s) 2.2 cm LV FS% (2D) 43 % IVS (d) 1.0 cm LVOT diameter 2.1 cm LVPW (d) 1.2 cm HR 62 bpm Ao Sinus 2.9 cm LA Vol index 26 ml/m2 Asc Ao 3.2 cm RA Vol index 21 ml/m2 LA 3.6 cm RA area 16 cm? ? ? RV Max 4C (d) 4.7 cm Diastology: Mitral Tissue Doppler E Peak 0.9 m/s e', Septum 0.09 m/s A Peak 0.8 m/s e', Lateral 0.13 m/s E/A 1.1 E/e' Average 8.08 DT 198 msec Aortic Valve: Vmax 2.5 m/s RUPINDER (V) 2.14 cm? ? ? VTI 0.56 m RUPINDER (I) 2.15 cm? ? ? LVOT V max 1.6 m/s Max PG 25 mmHg LVOT VTI 0.36 m Mean PG 12 mmHg SV 121 ml Dim Index 0.63 SV index 64 ml/m? ? ? CO 7.5 l/min CI 3.9 l/min/m? ? ? Mitral Valve: MVA 3.8 cm? ? ? MV P 1/2 57 msec Tricuspid Valve and estimated PA pressures: TR Vmax 2.6 m/s TAPSE 2.9 cm TR maxG 28 mmHg . This study was interpreted by an [facility] accredited facility. CC: [facility] ([facility]) [facility]. Final Natalie Long INTERNET CONSULTANT ECHO ORD * COLONOSCOPY (08/28/2022 7:37 AM CDT) 08/28/2022 7:37 AM CDT Narrative Transcriptions Girma Bauer MD - 08/28/2022 8:34 AM CDT Patient Name: Simi Sheppard Procedure Date: 08/28/2022 Gender: Female Date of [...] candidate for conscious sedation. The endoscope [id number] was passed through the anus andadvanced to [...] 7:37 AM Procedure Code(s): --- Professional --- 37408, Colonoscopy, flexible; with biopsy, single or multiple Diagnosis Code(s): --- Professional --- Z86.010, Personal history of colonicpolyps D12.2, Benign neoplasm of ascending colon CPT copyright 2021 [employer]. All rights reserved. The codes documented in this report are preliminary and upon clerical warehouseman reviewmay be revised to meet current compliance requirements. Scope In: 8:09:15 AM Scope Withdrawal Time 0 hours 9 minutes 40 seconds Scope Out: 8:23:15 AM Girma Bauer MD PROCEDURE ORD * XR MAMMO BILAT SCREENING (05/31/2022 8:32 AM TOBACCO SCRAP SIFTER) Anatomical Region Laterality Modality BREASTS, Breast Left, Breast Right Bilateral Mammography Impressions 06/03/2022 3:52 PM TOBACCO SCRAP SIFTER ??There is no radiographic evidence for malignancy. ??Recommend annual mammograms. MAMMOGRAM ASSESSMENT: ??ACR 1 Negative PATIENTS: You will also receive a letter with your examination results in an easy to read format. ??If you have questions about your results, please contact your referring provider. Narrative 06/03/2022 3:52 PM TOBACCO SCRAP SIFTER For Patients: As a result of the Century Cures Act, medical imaging exams and procedure reports are released immediately into your electronic medical record. You may view this report before your referring provider. If you have questions, please contact your health care provider. XR MAMMO BILAT SCREENING [[id number]] CLINICAL HISTORY: ??This is an asymptomatic 57 y.o. patient. INDICATION FOR EXAM: Mammogram Screening. TECHNIQUE: CC & MLO views were obtained. ??This study was evaluated with the assistance of Computer-Aided Detection. COMPARISON FILM: Yes 04/25/21 [facility] 06/17/19 [facility] FINDINGS: ??The breasts are almost entirely fatty. There are no dominant masses, suspicious micro calcifications or areas of architectural distortion. Zoraida GALARZA MAMMO * (ABNORMAL) LIPID PANEL W REFLEX MEASURED LDL (10/23/2021 8:31 AM CDT) CHOLESTEROL,TOTAL 259(H) 100 - 199 mg/dL 10/23/2021 5:13 PM CDT [facility] TRIGLYCERIDES 139 <150 mg/dL 10/23/2021 5:13 PM CDT [facility] HDL CHOLESTEROL 68 >40 mg/dL 5:13 PM CDT [facility] NON-HDL CHOLESTEROL 191(H) <145 mg/dl 10/23/2021 5:13 PM CDT [facility] CHOL/HDL RATIO 3.81 <4.50 10/23/2021 5:13 PM CDT [facility] LDL CHOLESTEROL 163(H) <=130 mg/dL 10/23/2021 5:13 PM CDT [facility] VLDL CHOLESTEROL 28 <=30 mg/dL 10/23/2021 5:13 PM CDT [facility] PROVIDER ORDERED STATUS RANDOM 10/23/2021 5:13 PM CDT [facility] Blood BLOOD SPECIMEN / Unknown Venipuncture / Unknown 10/23/2021 8:31 AM CDT 10/23/2021 8:31 AM CDT Zoraida GALARZA CHEMISTRY [facility] [address] [place] [address], * ANTI HCV (10/23/2021 8:31 AM CDT) HEPATITIS C ANTIBODY Non-React get Non-React get 10/23/2021 5:36 PM CDT [facility] Comment:Antibodies to HCV no t detected; does not exclude the possibility of exposure to HCV. Blood BLOOD SPECIMEN / Unknown Venipuncture / Unknown 10/23/2021 8:31 AM CDT 10/23/2021 8:31 AM CDT Zoraida GALARZA SEND OUTS [facility] [address] [place] [address], from Last 3 Months or Most Recently Relevant to Health Maintenance Care Teams Intake Counselor Relationship Specialty Start Date End Date Pcp, No . PCP - General 04/09/23
--- NOTE | 2024-03-10 14:40 | CRLHL7_ITS ---
For Patients: As a result of the Century Cures Act, medical imaging exams and procedure reports are released immediately into your electronic medical record. You may view this report before your referring provider. If you have questions, please contact your health care provider. BILATERAL SCREENING MAMMOGRAM WITH COMPUTER-AIDED DETECTION AND TOMOSYNTHESIS TECHNIQUE: CC and MLO views were obtained. These mammographic images have been obtained using full-field digital technique. These mammographic images were interpreted with the benefit of computer-aided detection. Breast Tomosynthesis was used in this interpretation. COMPARISON FILM: 05/31/22, 04/25/21. FINDINGS: The breasts are almost entirely fatty IMPRESSION: There is no radiographic evidence for malignancy. ASSESSMENT: BI-RADS Category 1: Negative RECOMMENDATION: Routine screening mammogram in 1 year. A lay language report of this examination will be provided to the patient. Hakeem Harding M.D. Diagnostic Radiologist [email or web address] JERSON/Dictated by: Hakeem Harding MD @ 03/12/2024 9:45:00 AM (Electronically Signed)
== END 2024-03-10 14:19 | disposition home or self-care (01) ==
LOC: MAMMO 14:18
PROVIDERS: PCP Nurse Practitioner Family; Visit Provider Nurse Practitioner Family
DX: Z12.31 Encounter for screening mammogram for malignant neoplasm of breast (principal)
CPT/HCPCS: 77063; 77067

== ENCOUNTER 2025-02-14 08:13 | Outpatient (CLI) | payer OTHER, SELFPAY | END 2025-02-14 08:14 | disposition home or self-care (01) | PROVIDERS: PCP Nurse Practitioner Family; Visit Provider Nurse Practitioner Family | DX: Z00.00 Encounter for general adult medical examination without abnormal findings (principal); E78.5 Hyperlipidemia, unspecified; Z13.0 Encounter for screening for diseases of the blood and blood-forming organs and certain disorders involving the immune mechanism | CPT/HCPCS: 80053; 80061; 82784; 84443; 85025; 86231; 86258; 86364 ==